=== PATIENT | male | born 1985 | race Caucasian/White ===

== ENCOUNTER 2018-11-09 14:31 | Emergency (ER) | payer MEDICAID ==
[~2018-11-09] VITALS: Ht 177.8 cm; Wt 79.5 kg
[~2018-11-09 14:31] MED LIST: AZIT250T PO; BACDS PO; CLIN-96 PO; NO HOME MEDS
[2018-11-09 14:39] VITALS: BP 109/75
[2018-11-09] MEDS ORDERED: AMOX500C2 PO (15:01)
[2018-11-09] MEDS ORDERED: CHLO473M3 PO (15:01)
[2018-11-09] MEDS ORDERED: IBUP-1986 PO (15:27)
== END 2018-11-09 15:40 | disposition home or self-care (01) ==
LOC: ER 14:32
DX: K04.7 Periapical abscess without sinus (principal); F12.90 Cannabis use, unspecified, uncomplicated; Z79.2 Long term (current) use of antibiotics
CPT/HCPCS: 99283